=== PATIENT | male | born 1980 | race Caucasian/White ===

== ENCOUNTER 2024-05-26 09:08 | Outpatient (CLI) | payer BC | END 2024-05-26 09:09 | disposition home or self-care (01) | LOC: CT 09:08 | PROVIDERS: ATTEND Otolaryngology Plastic Surgery within the Head & Neck | DX: R09.81 Nasal congestion (principal); J34.89 Other specified disorders of nose and nasal sinuses ==

== ENCOUNTER 2025-02-05 11:45 | Outpatient (CLI) | payer BC | END 2025-02-05 11:46 | disposition home or self-care (01) | LOC: SCSRAD 11:45 | PROVIDERS: ATTEND Family Medicine | DX: S46.912A Strain of unspecified muscle, fascia and tendon at shoulder and upper arm level, left arm, initial encounter (principal) ==